=== PATIENT | male | born 1975 | race American Indian/Alaskan Native ===

== ENCOUNTER 2016-10-21 16:40 | Emergency (ER) | payer SELFPAY ==
[2016-10-21] MEDS ORDERED: TORADOL IM ONE (23:30)
[2016-10-21] MEDS ORDERED: TYLENOL/CODEINE PO ONE (23:30)
[2016-10-22 00:26] LABS: Hematocrit 45.3 % (35.5-45.6); Hemoglobin 14.9 gm/dl (11.8-15.2); Mean Corpuscular HGB Conc 33 % (32-34); Mean Corpuscular Hemoglobin 30 pg (28-32); Mean Corpuscular Volume 91 fl (84-94); Platelet Count 288 K/mm3 (140-440); Red Blood Count 4.98 M/mm3 (3.65-5.03); Red Cell Distribution Width 13.2 % (13.2-15.2); White Blood Count 6.2 K/mm3 (4.5-11.0)
[2016-10-22 00:50] LABS: Anion Gap 19 mmol/L; BUN/Creatinine Ratio 13.75; Blood Urea Nitrogen 11 mg/dL (9-20); Calcium 8.9 mg/dL (8.4-10.2); Carbon Dioxide 26 mmol/L (22-30); Chloride 98.3 mmol/L (98-107); Glucose 87 mg/dL (75-100); Lipase 35 units/L (13-60); Potassium 3.9 mmol/L (3.6-5.0); Sodium 139 mmol/L (137-145)
--- NOTE | 2016-10-22 02:22 | Emergency Department Report ---
- General Chief Complaint: Upper Respiratory Infection Source: patient Mode of arrival: Ambulatory Limitations: No Limitations - History of Present Illness Initial Comments: 41 year old male presents to ED with non productive cough, congestion, runny nose, pleuritic chest pain x2-3 days. patient is stable, neurologically intact and in no acute distress. MD Complaint: cough, rhinorrhea, nasal congestion -: Gradual Severity: mild Quality: aching Consistency: constant Worsens With: other (cough) Associated Symptoms: rhinorrhea, nasal congestion, cough, chest pain (pleuritic) . denies: fever, chills, myalgias, diaphoresis, headache, sore throat, stiff neck, shortness of breath, abdominal pain, nausea, vomiting, diarrhea, dysuria, rash, confusion, right sweats, weight loss, epistaxis, hoarseness, ear pain - Related Data Previous Rx's Medication Instructions Recorded Last Taken Type Meloxicam [Mobic] 7.5 mg PO QDAY #5 tablet 10/22/16 Unknown Rx guaiFENesin DM [Robitussin Dm] 5 ml PO BID #118 ml 10/22/16 Unknown Rx Allergies Allergy/AdvReac Type Severity Reaction Status Date / Time No Known Allergies Allergy Unverified 10/22/16 02:34 ED Review of Systems ROS: Stated complaint: Other details as noted in HPI Constitutional: denies: chills, fever Eyes: denies: eye pain, eye discharge, vision change ENT: congestion. denies: ear pain, throat pain Respiratory: cough. denies: shortness of breath, wheezing Cardiovascular: denies: chest pain, palpitations Endocrine: no symptoms reported Gastrointestinal: denies: abdominal pain, nausea, diarrhea Genitourinary: denies: urgency, dysuria Musculoskeletal: denies: back pain, joint swelling, arthralgia Skin: denies: rash, lesions Neurological: denies: headache, weakness, paresthesias Psychiatric: denies: anxiety, depression Hematological/Lymphatic: denies: easy bleeding, easy bruising ED Past Medical Hx - Medications Home Medications: Home Medications Medication Instructions Recorded Confirmed Last Taken Type Meloxicam [Mobic] 7.5 mg PO QDAY #5 tablet 10/22/16 Unknown Rx guaiFENesin DM [Robitussin Dm] 5 ml PO BID #118 ml 10/22/16 Unknown Rx ED Physical Exam - General Limitations: No Limitations General appearance: alert, in no apparent distress - Head Head exam: Present: atraumatic, normocephalic - Eye Eye exam: Present: normal appearance, EOMI - ENT ENT exam: Present: normal exam, normal orophraynx, mucous membranes dry, mucous membranes moist - Neck Neck exam: Present: normal inspection, full ROM. Absent: tenderness - Respiratory Respiratory exam: Present: normal lung sounds bilaterally. Absent: respiratory distress, wheezes, rales, rhonchi, stridor, chest wall tenderness - Cardiovascular Cardiovascular Exam: Present: regular rate, normal rhythm. Absent: systolic murmur, diastolic murmur, rubs, gallop - GI/Abdominal GI/Abdominal exam: Present: soft, normal bowel sounds. Absent: distended, tenderness, guarding, rebound - Rectal Rectal exam: Present: deferred - Extremities Exam Extremities exam: Present: normal inspection, full ROM - Back Exam Back exam: Present: normal inspection, full ROM. Absent: tenderness - Neurological Exam Neurological exam: Present: alert, oriented X3, normal gait - Psychiatric Psychiatric exam: Present: normal affect, normal mood - Skin Skin exam: Present: warm, dry, intact, normal color. Absent: rash ED Medical Decision Making - Lab Data Result diagrams: 10/21/16 23:55 10/21/16 23:55 Labs 10/21/16 10/21/16 23:55 23:55 WBC 6.2 RBC 4.98 Hgb 14.9 Hct 45.3 MCV 91 MCH 30 MCHC 33 RDW 13.2 Plt Count 288 Lymph % (Auto) Leather Carver Add Manual Diff Complete Total Counted 100 Seg Neutrophils % Leather Carver Seg Neuts % (Manual) 23.0 L Band Neutrophils % 0 Lymphocytes % (Manual) 64.0 H Reactive Lymphs % (Man) 0 Monocytes % (Manual) 10.0 H Eosinophils % (Manual) 3.0 Basophils % (Manual) 0 Metamyelocytes % 0 Myelocytes % 0 Promyelocytes % 0 Blast Cells % 0 Nucleated RBC % Not Reportable Seg Neutrophils # Man 1.4 L Band Neutrophils # 0.0 Lymphocytes # (Manual) 4.0 Abs React Lymphs (Man) 0.0 Monocytes # (Manual) 0.6 Eosinophils # (Manual) 0.2 Basophils # (Manual) 0.0 Metamyelocytes # 0.0 Myelocytes # 0.0 Promyelocytes # 0.0 Blast Cells # 0.0 WBC Morphology Not Reportable Hypersegmented Neuts Not Reportable Hyposegmented Neuts Not Reportable Hypogranular Neuts Not Reportable Smudge Cells Not Reportable Toxic Granulation Not Reportable Toxic Vacuolation Not Reportable Dohle Bodies Not Reportable Pelger-Huet Anomaly Not Reportable Carolyn Rods Not Reportable Platelet Estimate Consistent w auto Clumped Platelets Not Reportable Plt Clumps, EDTA Not Reportable Large Platelets Not Reportable Giant Platelets Not Reportable Platelet Satelliting Not Reportable Plt Morphology Comment Not Reportable RBC Morphology Normal Dimorphic RBCs Not Reportable Polychromasia Not Reportable Hypochromasia Not Reportable Poikilocytosis Not Reportable Anisocytosis Not Reportable Microcytosis Not Reportable Macrocytosis Not Reportable Spherocytes Not Reportable Pappenheimer Bodies Not Reportable Sickle Cells Not Reportable Target Cells Not Reportable Tear Drop Cells Not Reportable Ovalocytes Not Reportable Helmet Cells Not Reportable Pras[place] Bodies Not Reportable Stitzer Rings Not Reportable [place] Cells Not Reportable Bite Cells Not Reportable Crenated Cell Not Reportable Elliptocytes Not Reportable Acanthocytes (Spur) Not Reportable Rouleaux Not Reportable Hemoglobin C Crystals Not Reportable Schistocytes Not Reportable Malaria parasites Not Reportable Donte Bodies Not Reportable Hem Pathologist Commnt No Sodium 139 Potassium 3.9 Chloride 98.3 Carbon Dioxide 26 Anion Gap 19 BUN 11 Creatinine 0.8 Estimated GFR > 60 BUN/Creatinine Ratio 13.75 Glucose 87 Calcium 8.9 Troponin T < 0.010 Lipase 35 blood cultures pending - Medical Decision Making 41 year old male presents to ED with pleuritic chest pain, cough and congestion. patient is stable, neurologically intact and in no acute distress. Critical care attestation.: If time is entered above; I have spent that time in minutes in the direct care of this critically ill patient, excluding procedure time. ED Disposition Clinical Impression: Viral bronchitis Disposition: DC-01 TO HOME OR SELFCARE Is pt being admited?: No Does the pt Need Aspirin: No Condition: Stable Instructions: Chronic Bronchitis (ED) Prescriptions: guaiFENesin DM [Robitussin Dm] 5 ml PO BID #118 ml Meloxicam [Mobic] 7.5 mg PO QDAY #5 tablet Referrals: DOC,ED, MD [Primary Care Provider] - 3-5 Days
[2016-10-22 02:26] LABS: Basophils % (Manual) 0 % (0.0-1.8); Blastocytes % (Manual) 0 %; Diff Status Complete; Platelet Estimate Consistent w Auto; RBC Morphology Normal
--- NOTE | 2016-10-22 10:42 | XRay Report ---
Chest 2 views: History: Cough and wheezing. Findings: Normal cardiomediastinal silhouette. Trachea is slightly deviated to the right in the superior mediastinum. No consolidation, pneumothorax or pleural effusion. Impression: Tracheal deviation to the right. Recommend CT scan to rule out mediastinal mass.
== END 2016-10-22 02:35 | disposition home or self-care (01) ==
LOC: ED 16:40
DX: J20.8 Acute bronchitis due to other specified organisms (principal)
CPT/HCPCS: 36415; 71020; 80048; 83690; 84484; 85007; 85025; 87040; 87400; 93005; 93010; 96372; 99284; J1885